=== PATIENT | male | born 1980 | race Caucasian/White ===

== ENCOUNTER 2020-11-14 16:02 | Emergency (ER) | payer SELFPAY ==
[~2020-11-14] VITALS: Ht 154.9 cm; Wt 77.1 kg
--- NOTE | 2020-11-14 16:31 | NUR ---
Seen and assessed at bedside; chief complaint of fever x5 days with diarrhea Note: The patient is unvaccinated (COVID) -I asked him to question, he told me he does not want to get vaccinated against COVID by choice
--- NOTE | 2020-11-14 16:32 | NUR ---
Rapid Covid antigen test sent to the lab
--- NOTE | 2020-11-14 16:32 | NUR ---
No signs of respiratory distress, with oxygen saturations were 97%, no fever with a temperature of 98.8 F
[2020-11-14] MEDS ORDERED: ACET-2605 PO (17:12)
[2020-11-14] MEDS ORDERED: ONDA4TAB5 PO (17:12)
--- NOTE | 2020-11-14 17:20 | NUR ---
assume pt care. transferred to ed bed 07. for cough, fever and diarrhea x 5 days. febrile upon assessment. will carry out orders.
[2020-11-14] MEDS ORDERED: ACETAMINOPHEN ES 500 MG TABLET PO ONE (17:30)
[2020-11-14] MEDS ORDERED: IV NS 0.9% 1,000 ML BAG IV ONE (17:30)
[2020-11-14] MEDS ORDERED: ACETAMINOPHEN ES 500 MG TABLET ONE (17:57)
[2020-11-14] MEDS ORDERED: AZIT250T13 PO (18:20)
--- NOTE | 2020-11-14 18:58 | NUR ---
verbal order for patient just to get 500ml NS. Patient discharged to home in stable condition. Written and verbal after care instructions given. Patient verbalizes understanding of instruction.IV removed. Catheter intact and site benign. Pressure and 4x4 applied to site. No bleeding noted.
[2020-11-14 18:59] VITALS: BP 126/74
== END 2020-11-14 19:00 | disposition home or self-care (01) ==
LOC: ER 16:12
DX: U07.1 COVID-19 (principal); J12.82 Pneumonia due to coronavirus disease 2019
CPT/HCPCS: 71045; 87426; 96360; 99284; C9803; J7030; U0003